=== PATIENT | female | born 1950 | race Caucasian/White ===

== ENCOUNTER 2017-04-24 08:58 | Day surgery (SDC) | payer OTHER, MEDICARE ==
[2017-04-17 12:12] VITALS: BMI 24.1
[2017-04-24] MEDS ORDERED: GENTAMICIN SO4 80 MG/2 ML VIAL ONE (10:14)
[2017-04-24] MEDS ORDERED: LIDOCAINE 1%/EPI 1:100000 (20 ML MULTI DOSE VIAL) ONE (10:14)
[2017-04-24] MEDS ORDERED: ceFAZolin SODIUM 1 GM VIAL ONE (10:14)
[2017-04-24] MEDS ORDERED: HYDROmorphone HCL CARPU-JECT 1 MG/1 ML DISP.SYRIN ONE ×2 (10:28→12:30)
[2017-04-24] MEDS ORDERED: LEVOFLOXACIN 500 MG IVPB 100 ML IVPB ONE (10:29)
[2017-04-24] MEDS ORDERED: LEVOFLOXACIN 25 MG/1 ML (20 ML VIAL) IVPB ONE (10:30)
[2017-04-24] MEDS ORDERED: PROPOFOL 20 ML ONE (10:48)
[2017-04-24] MEDS ORDERED: LIDOCAINE HCL/PF 2% SDV 5ML VIAL ONE (10:48)
[2017-04-24] MEDS ORDERED: HYDROmorphone HCL/PF 1 MG/ML VIAL (FOR PYXIS CHARGING ONLY) ONE (11:00)
[2017-04-24] MEDS ORDERED: DEXAMETHASONE SOD PHOSPHATE 4 MG/1 ML VIAL ONE (11:14)
[2017-04-24] MEDS ORDERED: LIDOCAINE HCL 1%, 10 MG/ML (20ML VIAL) ONE (11:18)
[2017-04-24] MEDS ORDERED: ONDANSETRON 4 MG/2 ML VIAL IVPUSH PRN (11:41)
[2017-04-24] MEDS ORDERED: oxyCODONE HCL 5 MG TABLET PO PRN ×2 (11:41)
[2017-04-24] MEDS ORDERED: LACTATED RINGERS SOLUTION 1,000 ML IV SCH (11:45)
[2017-04-24] MEDS: HYDROmorphone HCL CARPU-JECT 1 MG/1 ML DISP.SYRIN IVPUSH PRN ×3 (12:33→12:53)
[2017-04-24 19:36] VITALS: BP 144/67; PULSE 77; TEMP 97.9
--- NOTE | 2017-04-25 10:58 | OP ---
DATE OF OPERATION: 04/24/2017 SURGEON: Gareth Arthur MD CHILD NURSE SURGEON: Raquel Nunn PA-C PREOPERATIVE DIAGNOSES: 1. Bilateral acquired chest wall deformity status post bilateral mastectomy. 2. Asymmetry of reconstructed chest wall. 3. Mechanical complication and malposition of breast implants. POSTOPERATIVE DIAGNOSES: 1. Bilateral acquired chest wall deformity status post bilateral mastectomy. 2. Asymmetry of reconstructed chest wall. 3. Mechanical complication and malposition of breast implants. OPERATIVE PROCEDURE: 1. Right breast reconstruction with other technique. 2. Left breast reconstruction with other technique. 3. Right breast capsulectomy, removal and replacement of right breast implant. 4. Left breast capsulectomy, removal and replacement of left breast implant. OPERATIVE INDICATION: Patient is a 67-year-old female who has previously underwent mastectomy and reconstruction with implant, now presents with gross asymmetry of the chest wall, malposition of the implants, and on MRI, showed radial fold position of the implant with possible rupture. The risks and benefits of surgical versus nonsurgical alternatives as well as material complications of the above procedures were described to the patient preoperatively. She agreed to the planned procedure. She was marked in the standing position preoperatively in the holding area with the patient's knowledge. OPERATIVE PROCEDURE IN DETAIL: Patient was taken to the operating room, and after induction of general anesthesia in supine position, both arms were extended and padded. Venodyne boots were placed. The entire chest wall was prepped with a ChloraPrep solution over its entire extent. At this point, 1% local lidocaine anesthesia with 1:100,000 epinephrine was injected into the mastectomy scar on both breasts, and after allowing topical anesthesia and hemostasis, attention was turned to the right breast. At this point, an incision was made using a number 10 scalpel, down through the skin, deep into the subcutaneous tissue, and then, using the electrocautery, deepened down to the underlying capsule. I then performed a capsulotomy and capsulectomy. At this point, the implant was removed and sent for pathologic diagnosis. Some irregularity of the implant was noticed, but there was no evidence of rupture. The pocket was examined and showed malposition with the lateral and inferior gutters being extended. A repair was indicated. Using the technique of cauterization, the pocket itself was cauterized in the usual fashion using the long-cautery technique with DeBakey forceps. Once this was accomplished on the lateral and inferior gutters, a suture of No. 1 V-Loc was brought into the field. Using the technique of capsulorrhaphy, a 3-layered closure of the lateral portion of the breast itself was made using No. 1 V-Loc suture. This was carried out in adequate fashion, and then, a new implant was chosen. A Natrelle Inspira SCX 650-mL implant was brought sterilely unto the field and placed into the pocket on the right breast. Good shape and contour were seen. Modifications of the pocket were carried out superiorly, and releases were carried out in order to accommodate the implant itself. Attention was then turned to the left breast in a separate procedure. The exact same procedure was carried out symmetrically on the left breast using the same cauterization technique on the pocket and capsule, as well as the capsulorrhaphy with V-Loc suture. Copious irrigation of both wounds with dilute antibiotic solution was carried out. The same implant was placed in both breasts. The wounds were advanced and closed upon themselves using 3-0 PDS suture on the deep capsule for rearrangement and 3-0 PDS in a deep dermal fashion. The skin was closed using 4-0 Biosyn in a subcuticular fashion. All wounds were dressed sterilely with Dermabond and Steri-Strip dressing. She tolerated the procedure well. She was awakened, extubated, and transferred to the recovery room in a Surgi-Bra. GARETH ARTHUR M.D. [id number]
--- NOTE | 2017-04-29 16:31 | PATH ---
Surgical Pathology Report Patient Name: CUAUHTEMOC SHANKS [facility]. Rec. #: [id number] /Age/Gender: 1950 (Age: 67) / F Account: [id number] Location: [facility] Taken: 04/24/2017 Received: 04/24/2017 Reported: 04/29/2017 Physicians: Rsahid Arthur Specimen(s) Received BILATERAL BREAST IMPLANTS Clinical History Breast cancer history Final Diagnosis BILATERAL BREAST IMPLANTS, REMOVAL: IMPLANTS, DESCRIBED (GROSS EXAMINATION ONLY). Electronically Signed Susana Sheehan M.D. Gross Description Received without fixative labeled "bilateral breast implants," are 2 clear, rubbery, disc-shaped objects, consistent with breast implants. The implants average 15 cm in diameter x 4 cm in depth. No soft tissue is present. No sections are submitted, gross only. 04/25/201704/25/2017
== END 2017-04-24 15:35 | disposition home or self-care (01) ==
LOC: FASU 08:58
PROVIDERS: ATTEND Plastic Surgery
PROC: 0HPT0JZ Removal of Synthetic Substitute from Right Breast, Open Approach (ICD-10-PCS; 2017-04-24)
PROC: 0HRV0JZ Replacement of Bilateral Breast with Synthetic Substitute, Open Approach (ICD-10-PCS; 2017-04-24)
PROC: 0HRV07Z Replacement of Bilateral Breast with Autologous Tissue Substitute, Open Approach (ICD-10-PCS; principal; 2017-04-24 11:00)
PROC: 0HPU0JZ Removal of Synthetic Substitute from Left Breast, Open Approach (ICD-10-PCS; 2017-04-24 11:00)
DX: M95.4 Acquired deformity of chest and rib (principal); Z90.13 Acquired absence of bilateral breasts and nipples; N65.1 Disproportion of reconstructed breast; T85.41XA Breakdown (mechanical) of breast prosthesis and implant, initial encounter; Y83.8 Other surgical procedures as the cause of abnormal reaction of the patient, or of later complication, without mention of misadventure at the time of the procedure; Y92.89 Other specified places as the place of occurrence of the external cause
CPT/HCPCS: 88300-TC; 94760